=== PATIENT | female | born 2000 | race Caucasian/White ===

== ENCOUNTER 2018-09-25 17:25 | Emergency (ER) | payer BC ==
[~2018-09-25] VITALS: Ht 172.7 cm; Wt 74.8 kg
[2018-09-25 17:44] VITALS: BP 129/84; TEMP 98.4
[2018-09-25] MEDS ORDERED: EFFEXOR XR75 MG/CAP PO (19:50)
[2018-09-25] MEDS ORDERED: ULTRAM 50MG TAB50 MG PO (19:51)
[2018-09-25 20:38] LABS: COLLECTION METHOD CLEAN CATCH
[2018-09-25 20:43] LABS: PH 6 (5-8); URINE APPEARANCE Clear; URINE BACTERIA Rare /hpf; URINE BILIRUBIN Negative (NEGATIVE); URINE BLOOD Negative (NEGATIVE); URINE COLOR Straw; URINE GLUCOSE Negative (NEGATIVE); URINE KETONE Negative (NEGATIVE); URINE LEUKOCYTE ESTERASE Negative (NEGATIVE); URINE NITRATE Negative (NEGATIVE); URINE PROTEIN(semi-quant) Negative (NEGATIVE); URINE RBC 0-2 /hpf; URINE UROBILINOGEN Negative (NEGATIVE)
[2018-09-25 21:50] VITALS: PULSE 75
== END 2018-09-25 21:50 | disposition home or self-care (01) ==
LOC: COL.ER 17:25
PROVIDERS: Physician Assistant
DX: R51 Headache (principal)
CPT/HCPCS: J1200; J1885; J2550

== ENCOUNTER 2019-06-30 16:12 | Emergency (ER) | payer BC ==
[~2019-06-30] VITALS: Ht 172.7 cm; Wt 80.5 kg
[~2019-06-30 16:12] MED LIST: EFFEXOR XR75 MG/CAP PO; ULTRAM 50MG TAB50 MG PO
[2019-06-30 16:33] VITALS: TEMP 98.7
[2019-06-30 17:17] LABS: BASO % 0.2 % (0.0-2.0); EOS % 0.7 % (0-4.0); GRAN # 3.7 (1.4-6.5); GRAN % 63.9 % (42.2-75.2); HEMATOCRIT 41.6 % (37.0-47.0); HEMOGLOBIN 13.9 g/dl (12.5-16.0); LYMPH # 1.6 (1.2-3.4); MEAN CELL VOLUME 95 fl (80.0-100.0); MEAN CORPUSCULAR HEMOGLOBIN 32 pg (27.0-31.0); MEAN CORPUSCULAR HGB CONC 33 g/dl (33.0-37.0); MEAN PLATELET VOLUME 10.2 fl (7.4-10.4); MONO # 0.5 (0.1-0.6); PLATELET COUNT 224 K/mm3 (130-400); RED BLOOD COUNT 4.39 M/mm3 (4.10-5.30); REDCELL DISTRIBUTION WIDTH-CV 11.9 % (11.5-14.5)
[2019-06-30 17:24] LABS: ALANINE AMINOTRANSFERASE 17 U/L (9-52); ALBUMIN 4.5 gm/dL (3.5-5.0); ALKALINE PHOSPHATASE 59 U/L (50-136); ANION GAP 11 mmol/L (7-16); AST,SGOT 32 U/L (15-37); BILIRUBIN,TOTAL 0.5 mg/dL (0.0-1.0); BLOOD UREA NITROGEN 10 mg/dL (7-17); C-REACTIVE PROTEIN 1.7 mg/dL (0.0-0.9); CALCIUM 9.4 mg/dL (8.4-10.2); CARBON DIOXIDE 25 mmol/L (22-30); CHLORIDE 101 mmol/L (98-107); CREATININE, serum 0.83 (0.52-1.25); GLUCOSE 81 mg/dL (74-106); POTASSIUM 4.5 mmol/L (3.4-5.0); SODIUM 137 mmol/L (137-145)
[2019-06-30 17:39] LABS: TROPONIN-I < 0.012 ng/mL (0.000-0.035)
[2019-06-30] MEDS ORDERED: DOXYCYCLINE 10100 MG PO (18:40)
[2019-06-30 19:41] VITALS: BP 122/80; PULSE 82
== END 2019-06-30 19:41 | disposition home or self-care (01) ==
LOC: COL.ER 16:12
PROVIDERS: Emergency Medicine
DX: J11.1 Influenza due to unidentified influenza virus with other respiratory manifestations (principal); R06.02 Shortness of breath; F32.9 Major depressive disorder, single episode, unspecified